=== PATIENT | female | born 1960 | race Caucasian/White ===

== ENCOUNTER 2017-07-02 07:59 | Outpatient (RCR) | payer BC ==
[~2017-07-02 07:59] MED LIST: [UNRECOGNIZED DRUG - OTHER]; [UNRECOGNIZED DRUG - REMARK]
== END 2017-07-03 ==
LOC: PT 07:59
PROVIDERS: ATTEND Specialist
DX: M75.41 Impingement syndrome of right shoulder (principal); M25.511 Pain in right shoulder; M62.81 Muscle weakness (generalized)

== ENCOUNTER 2017-07-30 07:52 | Outpatient (RCR) | payer BC | END 2017-07-31 | LOC: PT 07:52 | PROVIDERS: ATTEND Specialist | DX: M75.41 Impingement syndrome of right shoulder (principal); M25.511 Pain in right shoulder; M62.81 Muscle weakness (generalized) ==

== ENCOUNTER 2017-08-29 08:00 | Outpatient (RCR) | payer BC | END 2017-08-31 | LOC: PT 08:00 | PROVIDERS: ATTEND Specialist | DX: M75.41 Impingement syndrome of right shoulder (principal); M25.511 Pain in right shoulder; M62.81 Muscle weakness (generalized) ==

== ENCOUNTER 2017-09-05 07:55 | Outpatient (RCR) | payer BC | END 2017-09-30 | LOC: PT 07:55 | PROVIDERS: ATTEND Specialist | DX: M75.41 Impingement syndrome of right shoulder (principal); M25.511 Pain in right shoulder; M62.81 Muscle weakness (generalized) | CPT/HCPCS: 97139 ==

== ENCOUNTER → 2022-10-24 | Outpatient (CLI) | payer BC | LOC: MAMMO 13:48 | PROVIDERS: ATTEND Obstetrics & Gynecology | DX: Z12.31 Encounter for screening mammogram for malignant neoplasm of breast (principal) | CPT/HCPCS: 77067 ==

== ENCOUNTER 2024-01-07 11:00 | Inpatient (IN) | payer BC ==
[~2024-01-07] VITALS: Ht 157.5 cm; Wt 69.4 kg
[2024-01-07] VITALS (7 sets, daily range): BP systolic 119–129; BP diastolic 65–76; PULSE 77–84; RESP 17–20; TEMP 97.6–98.1; O2SAT 100
[2024-01-07 11:31] LABS: BASOPHILS % 0.2 % (0.0-1.0); EOSINOPHILS # (AUTO) 0.2 (0.0-0.4); EOSINOPHILS % 1.7 % (0.0-6.0); HEMATOCRIT 33.8 % (34.2-44.1); HEMOGLOBIN 10.8 g/dL (12.0-16.0); LYMPHOCYTES # (AUTO) 0.4 (1.0-3.2); LYMPHOCYTES % 3.9 % (18.0-39.1); MEAN CORPUSCULAR HEMOGLOBIN 29.2 pg (28-32); MEAN CORPUSCULAR VOLUME 91.4 fL (81-99); MONOCYTES # (AUTO) 0.6 (0.2-0.8); MONOCYTES % 5.7 % (4.4-11.3); NEUTROPHILS # (AUTO) 8.5 (2.1-6.9); PLATELET COUNT 140 x10e3/uL (140-360); RED CELL DISTRIBUTION WIDTH 13.7 % (11.7-14.4); WHITE BLOOD COUNT 9.65 x10e3/uL (4.8-10.8)
[2024-01-07 11:43] LABS: INR 1.04; PROTHROMBIN TIME 14.3 seconds (11.9-14.5)
[2024-01-07 11:44] LABS: PARTIAL THROMBOPLASTIN TIME 32.5 seconds (23.8-35.5)
[2024-01-07 11:48] LABS: BACTERIA,URINE MANY /HPF; BILIRUBIN,URINE NEGATIVE (NEGATIVE); CLARITY,URINE TURBID (CLEAR); COLOR,URINE YELLOW (YELLOW); EPITHELIAL CELLS,URINE FEW /LPF; GLUCOSE, URINE NEGATIVE (NEGATIVE); KETONES,URINE NEGATIVE (NEGATIVE); LEUKOCYTE ESTERASE ,URINE SMALL (NEGATIVE); NITRITE,URINE NEGATIVE (NEGATIVE); PH,URINE 5.5 (5 - 7); PROTEIN,URINE DIPSTICK 2+ (NEGATIVE); RBC,URINE 21-50 /HPF (0-5); URINE UROBILINOGEN 0.2 mg/dL (0.2 - 1); WBC,URINE (MAN) >50 /HPF (0-5)
[2024-01-07 11:53] LABS: ALBUMIN 3.4 g/dL (3.5-5.0); ANION GAP 18.3 mmol/L (8-16); BILIRUBIN,TOTAL 0.4 mg/dL (0.2-1.2); CALCIUM 9.4 mg/dL (8.4-10.2); CREATININE, SERUM 7.78 mg/dL (0.57-1.11); MAGNESIUM 1.8 MG/DL (1.3-2.1); POTASSIUM 4.3 mmol/L (3.5-5.1); TOTAL PROTEIN 6.9 g/dL (6.5-8.1)
[2024-01-07] MEDS: DIAZEPAM 5 MG TAB PO ONE (12:08)
[2024-01-07 12:39] LABS: TROPONIN I 0.005 ng/mL (0-0.300)
[2024-01-07] MEDS: HYDROMORPHONE 1MG/1ML INJ IV PRN (13:34)
[2024-01-07] MEDS: ONDANSETRON HCL INJ 2MG/ML 2ML 2 MG/ML VIAL IV PRN (13:34)
[2024-01-07] MEDS: DOCUSATE SODIUM LIQD 100 MG/10 ML UDC NG SCH (19:00)
[2024-01-08 01:05] LABS: CREATINE KINASE 62 IU/L (29-168)
[2024-01-08 01:12] LABS: TROPONIN I < 0.001 ng/mL (0-0.300)
[2024-01-08 03:43] VITALS: BP 109/56; PULSE 89; RESP 18; TEMP 98.4; O2SAT 97
[2024-01-08 05:29] LABS: BASOPHILS % 0.1 % (0.0-1.0); EOSINOPHILS % 0.4 % (0.0-6.0); HEMATOCRIT 32.8 % (34.2-44.1); HEMOGLOBIN 10.5 g/dL (12.0-16.0); LYMPHOCYTES # (AUTO) 0.3 (1.0-3.2); LYMPHOCYTES % 2.8 % (18.0-39.1); MEAN CORPUSCULAR HEMOGLOBIN 29.3 pg (28-32); MEAN CORPUSCULAR VOLUME 91.6 fL (81-99); MONOCYTES # (AUTO) 0.7 (0.2-0.8); MONOCYTES % 7.9 % (4.4-11.3); NEUTROPHILS # (AUTO) 8.1 (2.1-6.9); NEUTROPHILS % 88.4 % (38.7-80.0); PLATELET COUNT 146 x10e3/uL (140-360); RED BLOOD COUNT 3.58 x10e6/uL (3.6-5.1); RED CELL DISTRIBUTION WIDTH 13.5 % (11.7-14.4); WHITE BLOOD COUNT 9.17 x10e3/uL (4.8-10.8)
[2024-01-08 05:58] LABS: ALBUMIN 3.1 g/dL (3.5-5.0); ALBUMIN/GLOBULIN RATIO 0.9 (0.8-2.0); ANION GAP 18.9 mmol/L (8-16); BILIRUBIN,TOTAL 0.3 mg/dL (0.2-1.2); CALCIUM 8.7 mg/dL (8.4-10.2); CREATININE, SERUM 7.53 mg/dL (0.57-1.11); POTASSIUM 4.9 mmol/L (3.5-5.1); TOTAL PROTEIN 6.5 g/dL (6.5-8.1)
[2024-01-08 06:18] LABS: CREATINE KINASE 35 IU/L (29-168)
[2024-01-08 06:26] LABS: TROPONIN I < 0.001 ng/mL (0-0.300)
[2024-01-08 08:00] VITALS: BP 126/59; PULSE 94; RESP 18; TEMP 99.3; O2SAT 98
[2024-01-08] MEDS ORDERED: BUPIVACAINE 0.25% 30ML SDV ONE (08:03)
[2024-01-08 12:17] VITALS: BP 132/69; PULSE 85; RESP 16; TEMP 98.6; O2SAT 99
[2024-01-08] MEDS ORDERED: SEVOFLURANE INHAL SOLN 250 ML PEN BTL ONE (12:24)
[2024-01-08] MEDS ORDERED: ONDANSETRON HCL INJ 2MG/ML 2ML 2 MG/ML VIAL ONE (12:24)
[2024-01-08] MEDS ORDERED: ROCURONIUM BROMIDE 10 MG/ML 5ML VIAL IV ONE (12:24)
[2024-01-08] MEDS ORDERED: PROPOFOL IV EMULSION 10 MG/ML 20 ML VIAL ONE (12:24)
[2024-01-08] MEDS ORDERED: CEFTRIAXONE 1 GM VIAL ONE (12:24)
[2024-01-08] MEDS ORDERED: LIDOCAINE HCL 2% LOCAL INJ 5 ML SDV VIAL INJ ONE (12:24)
[2024-01-08] MEDS ORDERED: SUCCINYLCHOLINE CHLORIDE 20 MG/ML 10ML VIAL ONE (12:24)
[2024-01-08] MEDS ORDERED: FENTANYL CITRATE/PF 100MCG/2 ML INJ ONE (12:58)
[2024-01-08] MEDS: HYDROMORPHONE 1MG/1ML INJ ONE (16:00)
[2024-01-08 18:20] VITALS: BP 106/52; PULSE 80; RESP 18; TEMP 98
[2024-01-08 19:50] VITALS: PULSE 78; RESP 18; O2SAT 93
[2024-01-08 20:00] VITALS: BP 130/59; PULSE 83; RESP 20; TEMP 97.6; O2SAT 99
[2024-01-08] MEDS: METRONIDAZOLE 500MG/NS 100ML 100 ML IV SCH (20:22)
[2024-01-08] MEDS: SODIUM CHLORIDE 0.9% 1000ML 1,000 ML IV SCH (20:23)
[2024-01-08] MEDS: HYDROMORPHONE 1MG/1ML INJ IV PRN (20:39)
[2024-01-08] MEDS ORDERED: Vancomycin IV 1 GM in SODIUM CHLORIDE 0.9% 250ML 250 ML IV ONE (21:00)
[2024-01-08] MEDS ORDERED: Vancomycin IV 1 GM in SODIUM CHLORIDE 0.9% 250ML 250 ML IV SCH (22:00)
[2024-01-08] MEDS: Vancomycin IV 1 GM in SODIUM CHLORIDE 0.9% 250ML 250 ML IV ONE (23:46)
[2024-01-09] MEDS: ONDANSETRON HCL INJ 2MG/ML 2ML 2 MG/ML VIAL IV PRN (00:03)
[2024-01-09] MEDS: SODIUM CHLORIDE 0.9% 250ML 250 ML ONE (01:54)
[2024-01-09 02:55] VITALS: BP 130/59; PULSE 80; PULSE 83; RESP 20; TEMP 97.6; O2SAT 99
[2024-01-09 04:00] VITALS: BP 131/64; PULSE 95; RESP 18; TEMP 97.7; O2SAT 98
[2024-01-09 05:49] LABS: BASOPHILS % 0.2 % (0.0-1.0); HEMATOCRIT 30.1 % (34.2-44.1); HEMOGLOBIN 9.4 g/dL (12.0-16.0); LYMPHOCYTES # (AUTO) 0.2 (1.0-3.2); LYMPHOCYTES % 2.3 % (18.0-39.1); MEAN CORPUSCULAR HEMOGLOBIN 29.6 pg (28-32); MEAN CORPUSCULAR HGB CONC 31.2 g/dL (31-35); MEAN CORPUSCULAR VOLUME 94.7 fL (81-99); MONOCYTES # (AUTO) 0.5 (0.2-0.8); MONOCYTES % 5.6 % (4.4-11.3); NEUTROPHILS # (AUTO) 8.2 (2.1-6.9); NEUTROPHILS % 91.1 % (38.7-80.0); PLATELET COUNT 154 x10e3/uL (140-360); RED BLOOD COUNT 3.18 x10e6/uL (3.6-5.1); WHITE BLOOD COUNT 9.05 x10e3/uL (4.8-10.8)
[2024-01-09 06:18] LABS: ALBUMIN 2.6 g/dL (3.5-5.0); ALBUMIN/GLOBULIN RATIO 0.7 (0.8-2.0); ANION GAP 20.7 mmol/L (8-16); BILIRUBIN,TOTAL 0.3 mg/dL (0.2-1.2); CALCIUM 8.1 mg/dL (8.4-10.2); CREATININE, SERUM 8.61 mg/dL (0.57-1.11); TOTAL PROTEIN 6.1 g/dL (6.5-8.1)
[2024-01-09 06:19] LABS: POTASSIUM 5.7 mmol/L (3.5-5.1)
[2024-01-09 08:34] VITALS: BP 135/58; PULSE 103; RESP 20; TEMP 99.1; O2SAT 96
[2024-01-09 08:48] VITALS: PULSE 94; RESP 16; O2SAT 89; O2SAT 97
[2024-01-09 10:00] VITALS: PULSE 90; RESP 16; O2SAT 98
== END 2024-01-09 10:10 | disposition short-term general hospital (02) | DRG 417 ==
LOC: ER 11:05 → ERHOLD 13:32 → MED/SURG 16:40 → OBSVTOIN 01-08 15:51
PROVIDERS: ADMIT Internal Medicine; ATTEND Internal Medicine
PROC: 3E1M39Z Irrigation of Peritoneal Cavity using Dialysate, Percutaneous Approach (ICD-10-PCS; principal; 2024-01-07)
PROC: 0FT44ZZ Resection of Gallbladder, Percutaneous Endoscopic Approach (ICD-10-PCS; 2024-01-08)
PROC: 0DNU4ZZ Release Omentum, Percutaneous Endoscopic Approach (ICD-10-PCS; 2024-01-08)
PROC: 0DN94ZZ Release Duodenum, Percutaneous Endoscopic Approach (ICD-10-PCS; 2024-01-08)
PROC: 0DNW4ZZ Release Peritoneum, Percutaneous Endoscopic Approach (ICD-10-PCS; 2024-01-08)
PROC: 0DNF4ZZ Release Right Large Intestine, Percutaneous Endoscopic Approach (ICD-10-PCS; 2024-01-08)
PROC: 0FN44ZZ Release Gallbladder, Percutaneous Endoscopic Approach (ICD-10-PCS; 2024-01-08)
PROC: 0FB Hepatobiliary System and Pancreas, Excision (ICD-10-PCS; 2024-01-08)
DX: K80.12 Calculus of gallbladder with acute and chronic cholecystitis without obstruction (principal); N18.6 End stage renal disease; I12.0 Hypertensive chronic kidney disease with stage 5 chronic kidney disease or end stage renal disease; N39.0 Urinary tract infection, site not specified; K82.1 Hydrops of gallbladder; S36.13XA Injury of bile duct, initial encounter; Y83.8 Other surgical procedures as the cause of abnormal reaction of the patient, or of later complication, without mention of misadventure at the time of the procedure; Y92.234 Operating room of hospital as the place of occurrence of the external cause; Z99.2 Dependence on renal dialysis; K66.0 Peritoneal adhesions (postprocedural) (postinfection); K82.8 Other specified diseases of gallbladder; K42.9 Umbilical hernia without obstruction or gangrene; E28.2 Polycystic ovarian syndrome; E78.5 Hyperlipidemia, unspecified; F41.9 Anxiety disorder, unspecified; H91.93 Unspecified hearing loss, bilateral; Z11.52 Encounter for screening for COVID-19; Z79.899 Other long term (current) drug therapy
CPT/HCPCS: 36415; 71250; 74176; 76705; 80053; 81001; 82550; 82948; 83735; 84484; 85025; 85610; 85730; 87040; 87071; 87086; 87186; 87205; 88304; 93005; 94760; 94799; 99284; C1766; G0378; J0330; J0696; J1170; J2001; J2405; J2470; J7030; J7050; U0002